=== PATIENT | female | born 1985 | race Caucasian/White ===

== ENCOUNTER 2017-08-06 20:41 | Emergency (ER) | payer MEDICAID ==
[2017-08-06 23:06] LABS: URINE BLOOD (Dip) POC Negative (NEGATIVE); URINE GLUCOSE (Dip) POC Negative (NEGATIVE); URINE KETONES (Dip) POC Trace (NEGATIVE); URINE LEUKOCYTE EST (Dip) POC Trace (NEGATIVE); URINE NITRITE (Dip) POC Negative (NEGATIVE); URINE TOTAL PROTEIN POC 2+ (NEGATIVE)
[2017-08-06] MEDS: KETOROLAC 60 MG INJ IM (23:10)
== END 2017-08-07 00:46 | disposition home or self-care (01) ==
LOC: FTE 08-07 00:46
DX: M54.2 Cervicalgia (principal)
CPT/HCPCS: 72040; 73610; 81003; 81025; 96372; 99284-25